=== PATIENT | male | born 1990 | race Caucasian/White ===

== ENCOUNTER 2019-05-09 10:06 | Emergency (ER) | payer SELFPAY ==
[2019-05-09 10:21] VITALS: BP 125/88; PULSE 90; RESP 16; TEMP 36.8; O2SAT 98; BMI 23.7
--- NOTE | 2019-05-09 10:25 | ED_ITS ---
Entered by Jaycee Childress, acting as scribe for HPI - Psych General: Chief Complaint: Psychiatric Symptoms Stated Complaint: MHE, ANXIETY Time Seen by Provider: 05/09/19 10:44 Source: patient and EMS Mode of arrival: EMS Limitations: no limitations History of Present Illness: MD complaint: feels depressed and other (off medications since being out of fdc) Onset (ago): day(s) (3 days ago) Duration: constant History of same: Yes Relieving factors: none Exacerbating factors: medication (off medications) Context: not taking psychiatric medications and significant life stressor Associated psychiatric symptoms: depression, racing thoughts and auditory hallucinations Associated symptoms: Reports auditory hallucinations and depression Treatments prior to arrival: none If self harm: other (hurt people if they dont leave him alone) Review of Systems General: Reports: 10 or more systems reviewed and unremarkable except in HPI and below Const: Denies: fever or chills Eyes: Denies: change in vision ENMT: Denies: throat pain Card: Denies: chest pain Resp: Denies: shortness of breath GI: Denies: nausea or vomiting : Denies: flank pain Psych: Reports: anxiety, depression, mood swings and auditory hallucinations Endo: Denies: excessive urination Anival/Lymph: Denies: easy bruising All/Imm: Denies: throat swelling PFSH ED PFSH: Social History Smoking and tobacco status: current every day smoker Physical Exam Const: COMMON NORMALS: no limitations, alert and well nourished EXAM LIMITATIONS: no altered mental status GENERAL APPEARANCE: cooperative, well developed and other (agitated but polite) ORIENTATION/CONSCIOUSNESS: Yes awake; not confused HENMT: COMMON NORMALS: normocephalic, head/scalp atraumatic, external ears normal and external nose normal HEAD & SCALP: normal to inspection, normocephalic and atraumatic FACE & SINUS: face symmetric NOSE: external nose normal EXTERNAL EAR: Yes external ears normal MOUTH: lip normal; no muffled voice Eye: COMMON NORMALS: EOMs intact bilaterally and conjunctivae normal GENERAL EYE: normal appearance of both eyes CONJUNCTIVA: Yes conjunctivae normal Neck/C-Spine: COMMON NORMALS: no JVD GENERAL: Yes normal visual inspection and Yes trachea midline Resp: COMMON NORMALS: normal respiratory effort, no use of accessory muscles and clear to auscultation bilaterally EFFORT & INSPECTION: Yes able to speak in complete sentences and Yes symmetric chest movement AUSCULTATION: clear to auscultation bilaterally Cardio: COMMON NORMALS: no JVD, regular rate and regular rhythm RATE: regular rate RHYTHM: regular rhythm PERIPHERAL PULSES: radial pulses present GI: COMMON NORMALS: soft to palpation INSPECTION: Yes normal to inspection PALPATION: Yes soft, No tender and No guarding Back/Pelvis: COMMON NORMALS: thoraco-lumbar ROM normal Extremity: COMMON NORMALS: normal to inspection GENERAL: Yes normal exam except as noted Neuro: COMMON NORMALS: moves all extremities, no focal motor deficits and no sensory deficits noted SENSORIUM/ORIENTATION: Yes alert Psych: COMMON NORMALS: mental status grossly normal, cooperative and speech normal APPEARANCE: Yes grossly normal ATTITUDE: Yes agitated ACTIVITY/MOTOR BEHAVIOR: Yes psychomotor agitation, Yes fidgeting, Yes hyperactive and Yes restless SPEECH: Yes normal speech MOOD & AFFECT: Yes anxious and Yes irritable THOUGHT PROCESS: circumstantial and racing thoughts THOUGHT CONTENT: No suicidality, No homicidality, No phobia(s), No derealization, No depersonalization, No rumination(s), No compulsion(s) and No obsession(s) ATTENTION/CONCENTRATION: Yes attention grossly intact MEMORY/COGNITION: Yes memory grossly intact INSIGHT: fair JUDGEMENT: fair Skin: COMMON NORMALS: no rashes or lesions noted, skin turgor normal and no jaundice GENERAL SKIN EXAM: no rashes or lesions noted and turgor normal OTHER: callused and dirty hands Discharge Plan Discharge Patient Disposition: Left Against Medical Advice Discharge Date/Time: 05/09/19 11:16 Coding Level of Care Code ED Leasing Specialist for Chg Fwd The documentation recorded by the Monroe barillas Bridget Annette, accurately reflects the service I personally performed and the decisions made by , Keo Mckee MD May 09, 2019 10:06
[2019-05-09 10:28] VITALS: BP 125/88; PULSE 90; RESP 16; TEMP 36.8; O2SAT 98
[2019-05-09 10:34] VITALS: RESP 17
== END 2019-05-09 11:16 | disposition left against medical advice (07) ==
PROVIDERS: Emergency Provider Emergency Medicine
DX: F41.9 Anxiety disorder, unspecified (principal); F32.9 Major depressive disorder, single episode, unspecified; R44.0 Auditory hallucinations; R45.1 Restlessness and agitation; F17.200 Nicotine dependence, unspecified, uncomplicated; Z53.29 Procedure and treatment not carried out because of patient's decision for other reasons
CPT/HCPCS: 99284

== ENCOUNTER 2024-10-21 09:22 | Emergency (ER) | payer MEDICAID, SELFPAY ==
[2024-10-21 09:25] VITALS: BP 110/71; PULSE 100; RESP 18; TEMP 36.3; O2SAT 100; BMI 21.5
--- OUTSIDE RECORDS SUMMARY | 2024-10-21 09:27 | XMS_ITS | Encounter Summary ---
Author Organization [facility] Address [address] Attn: Epic Prelude ADT [place] [address] Care Team Providers Care Application Administrator Name Role Phone Unavailable Primary Care Provider Unavailabl e Encounter Details Date Type Department Care Team (Latest Contact Info) Description 11/14/1999 Emergency GosHailee ramey MD [address] [place] [phone] Social History Tobacco Use Types Packs/Day Years Used Date Smoking Tobacco: Never Assessed Sex and Gender Information Value Date Recorded Sex Assigned at Not on file 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
--- OUTSIDE RECORDS SUMMARY | 2024-10-21 09:27 | XMS_ITS | Clinical Summary ---
Author Organization [facility] Address [address] [place] [address] Care Team Providers Care Buffing Machine Tender Name Role Phone Unavailable Primary Care Provider Unavailabl e Allergies No known active allergies Medications divalproex (DEPAKOTE ER) 500 mg Extended Release 24 hour tablet Take 1 Tablet (500 mg) by mouth 2 times daily. 60 Tablet 12/04/2019 Active OLANZapine (ZyPREXA) 5 mg tablet Take 1 Tablet (5 mg) by mouth 2 times daily. 60 Tablet 12/04/2019 Active Active Problems Problem Noted Date Diagnosed Date Bipolar 1 disorder 12/01/2019 PTSD (post-traumatic stress disorder) 12/01/2019 Current smoker 12/01/2019 Methamphetamine abuse 12/01/2019 Chronic hepatitis C 12/01/2019 Elevated liver enzymes 12/01/2019 Homicidal ideation 12/01/2019 Auditory hallucinations 12/01/2019 Suicidal ideations 11/30/2019 COVID-19 virus detected 11/30/2019 Elevated LFTs Schizoaffective disorder Immunizations Immunization Administration Dates Next Due (M-M-R II/PRIORIX)(12 MO UP) MEASLES, MUMPS AND RUBELLA VIRUS VACCINE, 0.5 ML IM/SUBCUT 11/04/1994,01/25/1990 (TDVAX)(7 YRS UP) TETANUS AN D DIPHTHERIA TOXOIDS, ADSORBED (2 LF OF TETANUS TOXOID AND 2 LF OF DIPHTHERIA TOXOID), 0.5ML (PF), IM 10/28/1998 Dt Dtp Dtap Vaccine 10/29/1993, 2,07/26/1990,1989 HIB, Unspecified Formulation 04/22/1990 Hepatitis B Vaccine 11/21/2002,12/07/2001 IPV/OPV 10/29/1993, 2,07/26/1990,1989 Social History Tobacco Use Types Packs/Day Years Used Date Smoking Tobacco: Every Day Cigarettes Smokeless Tobacco: Never Alcohol Use Standard Drinks/Week Comments No 0 (1 standard drink = 0.6 oz pur e alcohol) Sex and Gender Information Value Date Recorded Sex Assigned at Not on file 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 Gender Identity Not on file Sexual Orientation Not on file Last Filed Vital Signs Vital Sign Reading Time Taken Comments Blood Pressure 125/81 05/20/2020 8:00 PM CDT Pulse 86 05/20/2020 8:00 PM CDT Temperature 36.8 C (98.3 F) 05/20/2020 7:00 PM CDT Respiratory Rate 16 05/20/2020 7:00 PM CDT Oxygen Saturation 97% 05/20/2020 8:00 PM CDT Inhaled Oxygen Concentration - - Weight 72.9 kg (160 lb 11.5 oz) 05/20/2020 3:02 PM CDT Height 185.4 cm (6' 1 ) 11/30/2019 7:25 PM CDT Body Mass Index 21.2 11/30/2019 7:25 PM CDT Plan of Treatment Health Maintenance Due Date Last Done Comments DTAP/TDAP/TD VACCINES (5 - Tdap) 10/10/1999 10/28/1998, 10/29/1993, 09/20/1991, Additional history exists HPV VACCINES (1 - Male 3-dos e series) 10/10/2003 INFLUENZA VACCINE (#1) 2024 HEPATITIS B VACCINES Completed 11/21/2002, 12/08/19 02 Insurance RX [employer] (INTERNAL) [facility] Internal Plans Advance Directives For more information, please contact: [phone] * Full Code (Latest Code Status on File) Date Activated Date Inactivated Comments 11/30/2019 7:25 PM 12/04/2019 6:28 PM * Full Code Date Activated Date Inactivated Comments 11/01/2017 2:03 AM 11/06/2017 1:46 PM
--- OUTSIDE RECORDS SUMMARY | 2024-10-21 09:27 | XMS_ITS | Encounter Summary ---
Author Organization [facility] Address [address] [place] [address] Care Team Providers Care Manager Lpn Name Role Phone Unavailable Primary Care Provider Unavailabl e Encounter Details Date Type Department Care Team (Late st Contact Info) Description 12/21/2004 Emergency [facility] Emergency Department [address] 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
--- OUTSIDE RECORDS SUMMARY | 2024-10-21 09:27 | XMS_ITS | Encounter Summary ---
Author Organization [facility] Address [address] [place] [address] Care Team Providers Care Recruitment Intern Name Role Phone Unavailable Primary Care Provider Unavailabl e Encounter Details Date Type Department Care Team (Late st Contact Info) Description 11/19/2006 Outpatient Historical [facility] [address] [place] [address] Geovanni Fox, DO [address] [place] [address] Cellulitis and Abscess of Face (Primary Dx) Social History Tobacco Use Types Packs/Day Years Used Date Smoking Tobacco: Never Assessed Sex and Gender Information Value Date Recorded Sex Assigned at Not on file 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
--- OUTSIDE RECORDS SUMMARY | 2024-10-21 09:27 | XMS_ITS | Clinical Summary ---
Author Organization [facility] Address [address] [address] Care Team Providers Care Licensed Psychiatric Technician Name Role Phone Unavailable Primary Care Provider Unavailabl e Allergies No known active allergies Medications No known medications Active Problems Problem Noted Date Diagnosed Date Sinus bradycardia 11/04/2021 Thrombocytopenia 11/03/2021 Accidental drug overdose 11/03/2021 Other secondary thrombocytopenia 11/03/2021 Current smoker 12/01/2019 Methamphetamine abuse 12/01/2019 Elevated liver enzymes 12/01/2019 Bipolar 1 disorder 12/01/2019 PTSD (post-traumatic stress disorder) 12/01/2019 Auditory hallucinations 12/01/2019 Chronic hepatitis C 12/01/2019 Homicidal ideation 12/01/2019 Suicidal ideations 11/30/2019 COVID-19 virus detected 11/30/2019 Elevated LFTs Schizoaffective disorder Encounters Date Type Department Care Team Description 09/21/2024 External Device Data ST[facility] ABSTRACTION Provider, Abstract 09/20/2024 External Device Data [facility] ABSTRACTION Provider, Abstract 09/06/2024 External Device Data [facility] ABSTRACTION Provider, Abstract 09/06/2024 External Device Data [facility] ABSTRACTION Provider, Abstract 09/06/2024 External Device Data [facility] ABSTRACTION Provider, Abstract 08/02/2024 7:15 AM CDT - 08/02/2024 11:59 PM CDT Hospital Encounter [facility] Emergency Medical Services [facility] [address] [place] [address] Ambulance, [facility] Discharge Disposition: Home or Self Care from Last 3 Months Immunizations Immunization Administration Dates Next Due (M-M-R [...] at Not on file Legal Sex Male 6:22 AM REED FIXER Gender Identity Not on file Sexual Orientation Not on file Last Filed Vital Signs Vital Sign Reading Time Taken Comments Blood Pressure 115/79 11/06/2021 1:33 PM CDT Pulse 59 11/06/2021 1:33 PM CDT Temperature 36.7 C (98.1 F) 11/06/2021 1:33 PM CDT Respiratory Rate 18 11/06/2021 1:33 PM CDT Oxygen Saturation 97% 11/06/2021 1:33 PM CDT Inhaled Oxygen Concentration - - Weight 78.5 kg (173 lb 1 oz) 11/06/2021 2:11 AM CDT Height 185.4 cm (6' 1 ) 11/03/2021 1:15 PM CDT Body Mass Index 22.83 11/03/2021 1:15 PM CDT Plan of Treatment Health Maintenance Due Date Last Done Comments DTAP/TDAP/TD VACCINES (6 - Tdap) 10/10/1999 10/28/1998, 10/29/1993, 10/29/1993, Additional history exists HPV VACCINES (1 - Male 3-dos e series) 10/10/2003 INFLUENZA VACCINE (#1) 2024 HEPATITIS B VACCINES Completed 11/21/2002, 12/08/19 02 [place] [address] [place] * Guarantor: STEVE KISER Account Type Relation to Patient Date of Phone Billing Address Personal/Family [address] [place] [id number] RX [employer] (INTERNAL) [facility] Internal Plans [place] Advance Directives For more information, please contact: [phone] * Full Code (Latest Code Status on File) Date Activated Date Inactivated Comments 11/06/2021 8:10 AM 11/06/2021 7:39 PM * Full Code Date Activated Date Inactivated Comments 11/03/2021 1:16 AM 11/05/2021 2:50 PM
--- OUTSIDE RECORDS SUMMARY | 2024-10-21 09:27 | XMS_ITS | Encounter Summary ---
Author Organization [facility] Address [address] [place] [address] Care Team Providers Care Vice President Mission Integration Name Role Phone Unavailable Primary Care Provider Unavailabl e Encounter Details Date Type Department Care Team (Latest Contact Info) Description 11/21/2002 Outpatient Historical [facility] ac[facility] [address] [place] [phone] Nydia Irving MD NO ADDRESS ON FILE ACUTE SUPP OM W DRUM RUPT (Primary Dx); Vaccine for viral hepatitis Social History Tobacco Use Types Packs/Day Years Used Date Smoking Tobacco: Never Assessed Sex and Gender Information Value Date Recorded Sex Assigned at Not on file 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
--- OUTSIDE RECORDS SUMMARY | 2024-10-21 09:27 | XMS_ITS | Encounter Summary ---
Author Organization [facility] Address [address] [place] [address] Care Team Providers Care Electric Refrigerator Servicer Name Role Phone Unavailable Primary Care Provider Unavailabl e Encounter Details Date Type Department Care Team (Late st Contact Info) Description 11/11/2004 Emergency [facility] Emergency Department [address] 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
--- OUTSIDE RECORDS SUMMARY | 2024-10-21 09:27 | XMS_ITS | Encounter Summary ---
Author Organization [facility] Address [address] [place] [address] Care Team Providers Care Sample Grinder Name Role Phone Unavailable Primary Care Provider Unavailabl e Encounter Details Date Type Department Care Team (Late st Contact Info) Description 12/03/2005 Outpatient Historical [facility] [address] [place] [phone] Geovanni Fox, DO [address] [place] [address] Cellulitis and Abscess of Unspecified Site (Primary Dx) Social History Tobacco Use Types Packs/Day Years Used Date Smoking Tobacco: Never Assessed Sex and Gender Information Value Date Recorded Sex Assigned at Not on file 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
--- OUTSIDE RECORDS SUMMARY | 2024-10-21 09:27 | XMS_ITS | Encounter Summary ---
Author Organization [facility] Address [address] [place] [address] Care Team Providers Care Hospice Care Sales Consultant Name Role Phone Unavailable Primary Care Provider Unavailabl e Encounter Details Date Type Department Care Team (Latest Contact Info) Description 12/08/2002 Outpatient Historical [facility] [address] [place] [address] Nydia Irving MD NO ADDRESS ON FILE Tooth eruption disturb (Primary Dx) Social History Tobacco Use Types Packs/Day Years Used Date Smoking Tobacco: Never Assessed Sex and Gender Information Value Date Recorded Sex Assigned at Not on file 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
--- OUTSIDE RECORDS SUMMARY | 2024-10-21 09:27 | XMS_ITS | Encounter Summary ---
Author Organization [facility] Address [address] [place] [address] Care Team Providers Care Historical Site Guide Name Role Phone Unavailable Primary Care Provider Unavailabl e Encounter Details Date Type Department Care Team (Late st Contact Info) Description 12/17/2005 Outpatient Historical [facility] [address] 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
--- OUTSIDE RECORDS SUMMARY | 2024-10-21 09:27 | XMS_ITS | Encounter Summary ---
Author Organization [facility] Address [address] [place] [address] Care Team Providers Care Incubator Operator Name Role Phone Unavailable Primary Care Provider Unavailabl e Encounter Details Date Type Department Care Team (Latest Contact Info) Description 07/04/2003 Outpatient Historical [facility] [address] [place] [phone] Nydia Irving MD NO ADDRESS ON FILE ABDOMINAL PAIN UNSPEC SITE (Primary Dx) Social History Tobacco Use Types Packs/Day Years Used Date Smoking Tobacco: Never Assessed Sex and Gender Information Value Date Recorded Sex Assigned at Not on file 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
--- OUTSIDE RECORDS SUMMARY | 2024-10-21 09:27 | XMS_ITS | Encounter Summary ---
Author Organization [facility] Address [address] [place] [address] Care Team Providers Care Warp Tester Name Role Phone Unavailable Primary Care Provider Unavailabl e Encounter Details Date Type Department Care Team (Latest Contact Info) Description 01/17/2003 Outpatient [facility] [address] [place] [phone] Nydia Irving MD NO ADDRESS ON FILE FLU W RESP MANIFEST NEC (Primary Dx) Social History Tobacco Use Types Packs/Day Years Used Date Smoking Tobacco: Never Assessed Sex and Gender Information Value Date Recorded Sex Assigned at Not on file 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
--- OUTSIDE RECORDS SUMMARY | 2024-10-21 09:27 | XMS_ITS | Encounter Summary ---
Author Organization [facility] Address [address] [place] [address] Care Team Providers Care Clerk Rating Name Role Phone Unavailable Primary Care Provider Unavailabl e Encounter Details Date Type Department Care Team (Latest Contact Info) Description 03/27/2003 Outpatient Historical [facility] [address] [place] [phone] Nydia Irving MD NO ADDRESS ON FILE ACUTE PHARYNGITIS (Primary Dx); BACKACHE NOS Social History Tobacco Use Types Packs/Day Years Used Date Smoking Tobacco: Never Assessed Sex and Gender Information Value Date Recorded Sex Assigned at Not on file 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
--- OUTSIDE RECORDS SUMMARY | 2024-10-21 09:27 | XMS_ITS | Encounter Summary ---
Author Organization [facility] Address [address] [place] [address] Care Team Providers Care Wheat Buyer Name Role Phone Unavailable Primary Care Provider Unavailabl e Encounter Details Date Type Department Care Team (Latest Contact Info) Description 12/05/2005 Outpatient Historical [facility] [address] [place] [phone] Nydia Irving MD NO ADDRESS ON FILE Open Wnd Arm Mult/NOS (Primary Dx) Social History Tobacco Use Types Packs/Day Years Used Date Smoking Tobacco: Never Assessed Sex and Gender Information Value Date Recorded Sex Assigned at Not on file 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
--- OUTSIDE RECORDS SUMMARY | 2024-10-21 09:27 | XMS_ITS | Encounter Summary ---
Author Organization [facility] Address [address] [place] [address] Care Team Providers Care Keymodule Assembly Machine Tender Name Role Phone Unavailable Primary Care Provider Unavailabl e Encounter Details Date Type Department Care Team (Latest Contact Info) Description 05/08/2003 Outpatient [facility] [address] [place] [phone] Nydia Irving MD NO ADDRESS ON FILE [facility] USE MEDICATN (Primary Dx) Social History Tobacco Use Types Packs/Day Years Used Date Smoking Tobacco: Never Assessed Sex and Gender Information Value Date Recorded Sex Assigned at Not on file 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
--- OUTSIDE RECORDS SUMMARY | 2024-10-21 09:27 | XMS_ITS | Encounter Summary ---
Author Organization [facility] Address [address] [place] [address] Care Team Providers Care Manager Student Services Name Role Phone Unavailable Primary Care Provider Unavailabl e Encounter Details Date Type Department Care Team (Latest Contact Info) Description 10/28/1998 Outpatient Historical [facility] [place] [place] [facility] Nydia Irving MD NO ADDRESS ON FILE Open wound of foot except toe(s) alone, without mention of complication (Primary Dx) Social History Tobacco Use Types Packs/Day Years Used Date Smoking Tobacco: Never Assessed Sex and Gender Information Value Date Recorded Sex Assigned at Not on file 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
--- OUTSIDE RECORDS SUMMARY | 2024-10-21 09:27 | XMS_ITS | Encounter Summary ---
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
--- OUTSIDE RECORDS SUMMARY | 2024-10-21 09:27 | XMS_ITS | Encounter Summary ---
Author Organization [facility] Address [address] [place] [address] Care Team Providers Care Poultry Debeaker Name Role Phone Unavailable Primary Care Provider Unavailabl e Encounter Details Date Type Department Care Team (Latest Contact Info) Description 05/01/2006 Outpatient Historical [facility] [address] [place] [phone] Nydia Irving MD NO ADDRESS ON FILE Acute Sinusitis, Unspecified (Primary Dx) Social History Tobacco Use Types Packs/Day Years Used Date Smoking Tobacco: Never Assessed Sex and Gender Information Value Date Recorded Sex Assigned at Not on file 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
--- OUTSIDE RECORDS SUMMARY | 2024-10-21 09:27 | XMS_ITS | Encounter Summary ---
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
--- OUTSIDE RECORDS SUMMARY | 2024-10-21 09:27 | XMS_ITS | Encounter Summary ---
Author Organization [facility] Address [address] [place] [address] Care Team Providers Care Poolroom/Poolhall Manager Name Role Phone Unavailable Primary Care Provider Unavailabl e Encounter Details Date Type Department Care Team (Late st Contact Info) Description 11/20/2006 Outpatient Historical [facility] [address] [place] [phone] Geovanni Fox, DO [address] [place] [address] Cellulitis and Abscess of Face (Primary Dx) Social History Tobacco Use Types Packs/Day Years Used Date Smoking Tobacco: Never Assessed Sex and Gender Information Value Date Recorded Sex Assigned at Not on file 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
--- OUTSIDE RECORDS SUMMARY | 2024-10-21 09:27 | XMS_ITS | Encounter Summary ---
Author Organization [facility] Address [address] [place] [address] Care Team Providers Care Risk Control Representative Name Role Phone Unavailable Primary Care Provider Unavailabl e Encounter Details Date Type Department Care Team (Latest Contact Info) Description 12/01/2005 Outpatient Historical [facility] [address] [place] [phone] Nydia Irving MD NO ADDRESS ON FILE Cellulitis and Abscess of Upper Arm and Forearm (Primary Dx) Social History Tobacco Use Types Packs/Day Years Used Date Smoking Tobacco: Never Assessed Sex and Gender Information Value Date Recorded Sex Assigned at Not on file 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
[2024-10-21 09:50] LABS: Hematocrit 46.2 % (37-53); Hemoglobin 15.20 g/dL (11.27-16.99); Mean Corpuscular HGB Conc 32.9 g/dL (30-55); Mean Corpuscular Hemoglobin 30.5 pg (27-33); Mean Corpuscular Volume 92.8 fl (82-101); Nucleated Red Blood Cells % 0 %; Platelet Count 155 10^3/cmm (157-399); Red Blood Count 4.98 10^6/uL (3.85-5.65); White Blood Count 10.04 10^3/uL (3.29-11.43)
--- NOTE | 2024-10-21 09:56 | ED.C_ITS ---
HPI - Psych 2 General: Chief Complaint: Psychiatric Symptoms Stated Complaint: 96 HOUR HOLD Time Seen by Provider: 10/21/24 09:31 History of Present Illness: 34-year-old male presents to the emergen cy room on a 96-hour hold. Family members had a 96-hour hold placed onto the court. Patient brought in by law enforcement. Patient is calm and agreeable gives a good history. Affidavits mention a gun he says he knows someone has a gun that is the only discussion he has had about a gun recently he informed me he is not allowed to have firearms and he stays away from the person because he does not trust them he thinks that we will get him into trouble. He states he recently sold some land and his family has been trying to get him to give money to them. He admits to being somewhat anxious but also states he realizes he is just going to have to let os work to process out before he is able to go home. He denies adamantly any suicidal homicidal ideation. Related Data Home Medications ?Medication ?Instructions ?Recorded ?Confirmed No Known Home Medications 08/09/2110/07 Allergies Allergy/AdvReac Type Severity Reaction Status Date / Time No Known Allergies Allergy Verified 08/09/21 08:46 Review of Systems 2 Const: Denies: fever(s), chills, body aches, change in appetite, fatigue or malaise ENMT: Denies: throat pain, ear or mastoid pain, nasal discharge or nasal congestion Card: Denies: chest pain, edema, dyspnea on exertion or orthopnea Resp: Denies: dyspnea, productive cough or non-productive cough GI: Denies: abdominal pain, nausea, vomiting, hematemesis, coffee ground emesis, diarrhea, constipation, bloating, hematochezia or melena : Denies: flank pain, dysuria, urinary frequency or urinary urgency Skin/Breast: Denies: rash or pruritus PFSH ED 2 PFSH: Medical History Major depressive disorder, recurrent severe without psychotic features Social History Smoking and tobacco/nicotine status: current every day tobacco/nicotine user cigarettes Packs smoked per day: 0.5 Years cigarettes smoked: 23 Quit status (tobacco/nicotine): has tried quititng Number of times tried to quit tobacco: 2 Second hand smoke exposure: Yes Current gender identity: Male Physical Exam 2 Const: COMMON NORMALS: no acute distress GENERAL APPEARANCE: cooperative and comfortable ORIENTATION/CONSCIOUSNESS: Yes awake, Yes oriented to person, Yes oriented to place and Yes oriented to time HENMT: COMMON NORMALS: normocephalic, atraumatic, hearing grossly normal bilaterally, external ears normal, EAC's normal, TM's normal bilaterally, Normal nasal mucous membranes and turbinates present, moist oral mucous membranes and oropharynx normal HEAD & SCALP: normocephalic and atraumatic NOSE: Normal nasal mucous membranes and turbinates present EXTERNAL EAR: Yes external ears normal EXTERNAL AUDITORY CANAL: EAC's normal TYMPANIC MEMBRANE: TM's normal bilaterally Eye: COMMON NORMALS: Equal, round and reactive pupils present, EOMs intact bilaterally, conjunctivae normal and no scleral icterus CONJUNCTIVA: Yes conjunctivae normal PUPIL: Yes Equal, round and reactive pupils present Neck/C-Spine: COMMON NORMALS: full ROM, no lymphadenopathy, supple and no JVD Lymph: LYMPHATIC: no lymphadenopathy noted and no lymphedema noted Resp: COMMON NORMALS: normal respiratory effort, No retractions, No use of accessory muscles and clear to auscultation bilaterally AUSCULTATION: clear to auscultation bilaterally Cardio: COMMON NORMALS: no JVD, regular rate, regular rhythm and No murmurs present (Cardio) RATE: regular rate RHYTHM: regular rhythm GI: COMMON NORMALS: Soft to palpation and No hepatosplenomegaly present A USCULTATION: Yes normoactive bowel sounds PALPATION: Yes Soft to palpation, No Tenderness to palpation present (GI), No Guarding due to palpation present (GI) and Yes No hepatosplenomegaly present Extremity: COMMON NORMALS: normal to inspection, capillary refill normal, no clubbing, cyanosis or edema, no calf tenderness and no pedal edema Neuro: SENSORIUM/ORIENTATION: Yes oriented to person, Yes oriented to place and Yes oriented to time Skin: COMMON NORMALS: no rashes or lesions noted GENERAL SKIN EXAM: no rashes or lesions noted Course 2 Vital Signs: Vital signs: Vital Signs Temperature 97.4 F L 10/21/24 09:25 Pulse Rate 95 10/21/24 13:53 Respiratory Rate 18 10/21/24 09:25 Blood Pressure 134/70 10/21/24 13:53 Pulse Oximetry 100 10/21/24 13:53 Oxygen Delivery Me thod Room Air 10/21/24 09:25 MDM - Psych Medical Decision Making Multiple conversations with the patient he is calm each time he is willing to let this work out gives the same story. She states he is estranged from one of the persons who wrote the affidavit. When asked what he would do if he was discharged home he had plans to go to a friend's house and then eventually was going to remove his personal belongings to get away family members who wrote the affidavits. He states they do not get along well he does not want to deal with them he can is adamant that he is not homicidal or suicidal reviewed with Dr. Galvan we both agree at this point he can be released from his 96-hour hold. Medical Records I reviewed the patient's medical records. Lab Data I reviewed the patient's lab results. 10/21/24 09:45 10/21/24 09:45 Laboratory Results WBC 10.04 10^3/uL (3.29-11.43) 10/21/24 09:45 RBC 4.98 10^6/uL (3.85-5.65) 10/21/24 09:45 Hgb 15.20 g/dL (11.27-16.99) 10/21/24 09:45 Hct 46.2 % (37-53) 10/21/24 09:45 MCV 92.8 fl (82-101) 10/21/24 09:45 MCH 30.5 pg (27-33) 10/21/24 09:45 MCHC 32.9 g/dL (30-55) 10/21/24 09:45 RDW 13.2 % (12.1-15.1) 10/21/24 09:45 Plt Count 155 10^3/cmm (157-399) L 10/21/24 09:45 MPV 10.4 fL (7.4-10.4) 10/21/24 09:45 Neut % (Auto) 57.7 % 10/21/24 09:45 Lymph % (Auto) 29.2 % 10/21/24 09:45 Eaton % (Auto) 7.2 % 10/21/24 09:45 Eos % (Auto) 4.6 % 10/21/24 09:45 Baso % (Auto) 1.0 % 10/21/24 09:45 Neut # (Auto) 5.80 10^3/uL (1.8-7.7) 10/21/24 09:45 Lymph # (Auto) 2.9 10^3/uL (0.8-4.8) 10/21/24 09:45 Eaton # (Auto) 0.7 10^3/uL (0.2-0.9) 10/21/24 09:45 Eos # (Auto) 0.5 10^3/uL (0.0-0.8) 10/21/24 09:45 Baso # (Auto) 0.1 10^3/uL (0.0-0.1) 10/21/24 09:45 Nucleated RBC % (auto) 0 % 10/21/24 09:45 Nucleated RBCs # 0.0 /100WBC 10/21/24 09:45 Sodium 144 mmol/L (136-145) 10/21/24 09:45 Potassium 4.2 mmol/L (3.5-5.1) 10/21/24 09:45 Chloride 106 mmol/L (98-107) 10/21/24 09:45 Carbon Dioxide 30 mmol/L (22-29) H 10/21/24 09:45 Anion Gap 12.2 (5-19) 10/21/24 09:45 BUN 16 mg/dL (6-20) 10/21/24 09:45 Creatinine 0.9 mg/dL (0.7-1.2) 10/21/24 09:45 GFR Calculation 95.5 mL/min (90-130) 10/21/24 09:45 Glucose 81 mg/dL (65-115) 10/21/24 09:45 Calculated Osmolality 298 mOsm/kg (285-295) H 10/21/24 09:45 Calcium 9.3 mg/dL (8.5-10.5) 10/21/24 09:45 Total Bilirubin 0.3 mg/dL (0.15-1.2) 10/21/24 09:45 AST 19 U/L (0-40) 10/21/24 09:45 ALT 20 U/L (0-41) 10/21/24 09:45 Alkaline Phosphatase 84 U/L (40-130) 10/21/24 09:45 Total Protein 7.6 g/dL (6.6-8.7) 10/21/24 09:45 Albumin 4.6 g/dL (3.5-5.2) 10/21/24 09:45 Globulin 3.0 g/dL (1.3-4.6) 10/21/24 09:45 Salicylates < 0.3 mg/dL (3-10) L 10/21/24 09:45 Acetaminophen < 5.0 ug/mL (10-30) L 10/21/24 09:45 All radiology interpretation(s) finalized by discharge Discharge Plan Discharge Patient Disposition: Home Clinical Impression: Family discord Condition: Stable Prescriptions: No Action No Known Home Medications Discharge Orders: Discharge ED (Routine); Ordered 10/21/24 Ordered By: Ralph Toro Discharge Diet: Usual diet Discharge Activity: Resume usual activity Patient Instructions: Opioid Safety, Pain Management, Patient Portal & Radha Instructions Activity Restrictions/Additional Instructions: Thank you for choosing [facility] for your healthcare needs today. It is very important that you follow up as instructed or that you return to the Emergency Department should you have concerns or if your condition changes or worsens in any way. You were seen in the emergency room on a 96-hour hold initiated by family members. After reviewing your case with the on-call psychiatrist we did not feel that it was necessary for you to be hospitalized at this time and be discharged home if you have any difficulties or begin to have suicidal thoughts return to the emergency room or contact crisis stabilization unit Print Language: Indonesian Coding Level of Care Code ED Institutional Asset Manager for Andrea Salguero
[2024-10-21 10:10] LABS: Alanine Aminotransferase 20 U/L (0-41); Albumin Level 4.6 g/dL (3.5-5.2); Alkaline Phosphatase 84 U/L (40-130); Anion Gap 12.2 (5-19); Aspartate Amino Transferase 19 U/L (0-40); Blood Urea Nitrogen 16 mg/dL (6-20); Calcium 9.3 mg/dL (8.5-10.5); Carbon Dioxide 30 mmol/L (22-29); Chloride 106 mmol/L (98-107); Creatinine Clr Calc Pharmacy 113.9757; Globulin 3.0 g/dL (1.3-4.6); Glucose 81 mg/dL (65-115); Osmolality Calculated 298 mOsm/kg (285-295); Potassium 4.2 mmol/L (3.5-5.1); Sodium 144 mmol/L (136-145); Total Protein 7.6 g/dL (6.6-8.7)
[2024-10-21 10:13] LABS: Acetaminophen < 5.0 ug/mL (10-30); Salicylate < 0.3 mg/dL (3-10)
--- NOTE | 2024-10-21 10:27 | PC.NURSE ---
Pt was read his 96 hour hold rights at 0950. Security was present and the pt did not have any questions.
--- NOTE | 2024-10-21 11:30 | PC.NURSE ---
Dr. Toro requested to speak with pts mother, pt gave mothers name and phone number as it is not in the chart. Anali- [phone]
[2024-10-21 13:53] VITALS: BP 134/70; PULSE 95; O2SAT 100
== END 2024-10-21 13:53 | disposition home or self-care (01) ==
PROVIDERS: Emergency Provider Family Medicine
DX: Z63.8 Other specified problems related to primary support group (principal); F17.210 Nicotine dependence, cigarettes, uncomplicated
CPT/HCPCS: 80053; 80307; 85025; 99283